=== PATIENT | female | born 1975 | race Native Hawaiian/Other Pacific Islander ===

== ENCOUNTER 2018-04-13 13:13 | Outpatient (CLI) | payer BC | END 2018-04-13 18:20 | disposition home or self-care (01) | LOC: CT 13:13 | DX: S05.01XD Injury of conjunctiva and corneal abrasion without foreign body, right eye, subsequent encounter (principal); H57.11 Ocular pain, right eye ==

== ENCOUNTER 2021-10-02 12:51 | Outpatient (CLI) | payer BC | END 2021-10-02 20:44 | disposition home or self-care (01) | LOC: US 12:51 → EDSEX 13:00 → US 13:00 | PROVIDERS: ATTEND Physician Assistant | DX: I10 Essential (primary) hypertension (principal); E78.5 Hyperlipidemia, unspecified; M67.479 Ganglion, unspecified ankle and foot ==